=== PATIENT | female | born 1985 | race Caucasian/White ===

== ENCOUNTER 2024-12-04 02:44 | Inpatient (IN) | payer OTHER, SELFPAY ==
[2024-12-04] VITALS (8 sets, daily range): BP systolic 92–137; BP diastolic 55–89; PULSE 73–122; RESP 16–92; TEMP 36.8–38.6; O2SAT 92–100; BMI 33.8
--- NOTE | 2024-12-04 03:11 | XR_ITS ---
Examination: CT abdomen and pelvis without contrast. Coronal 3-D reconstructions. Sagittal 2-D reconstructions. Date and time of exam:December 04, 2024 0520 hours INDICATIONS: Severe abdominal pain beginning 2 days ago CTDI: vol (mGy): 11.1 DLP: (mGycm): 660 Technique: Axial images of the abdomen have been obtained, 3 mm slice thickness Intravenous contrast material has not been administered. Low dose protocols were performed. One or more of the following dose reduction techniques were used; automated exposure control, adjustment of the mA and/or KV according to patient size, use of iterative reconstruction technique. Findings: No focal liver or splenic lesion Absent gallbladder No pancreatic mass Mild right hydronephrosis without definite ureteral calculi No bowel obstruction Normal appendix No pelvic mass No bladder mass IMPRESSION: Mild right hydronephrosis without definite ureteral calculi, consider urinary tract infection, recent passage of a ureteral calculus
--- NOTE | 2024-12-04 03:11 | PD.EDRME ---
Rapid Medical Screening Exam RME Arrival date/time: 12/04/24 02:44 This is a case of 39-year-old female with history of multidrug resistance recurrent urinary tract infection and kidney stone came in with bilateral flank pain radiating to suprapubic area for 2 days associated with nausea vomiting and blood in the urine worsening symptoms this patient decided to sought consult here in the emergency room Chief Complaint: Urogenital-Female Time Seen by Provider: 12/04/24 02:53 Vital signs: Vital Signs Temperature 100.4 F 12/04/24 03:00 Pulse Rate 122 H 12/04/24 03:00 Respiratory Rate 18 12/04/24 03:00 Blood Pressure 133/87 H 12/04/24 03:00 Pulse Oximetry (%) 100 12/04/24 03:00 Oxygen Delivery Method Room Air 12/04/24 03:00
[2024-12-04 03:28] LABS: Collection Type, Urine Clean Catch
[2024-12-04 03:30] LABS: Basophils # (Auto) 0.0 Thou/mm3 (0.0-0.2); Basophils % (Auto) 0 % (0-2.5); Eosinophils # (Auto) 0.1 Thou/mm3 (0.0-0.5); Eosinophils % (Auto) 1 % (0-10); Hematocrit 37.3 % (36.0-46.0); Hemoglobin 11.8 g/dL (12.0-16.0); Immature Granulocytes Auto 0.03 Thou/mm3 (0.00-0.00); Lymphocytes # (Auto) 1.2 Thou/mm3 (1.0-4.8); Lymphocytes % (Auto) 10 % (10-50); Mean Corpuscular HGB Conc 31.6 g/dl (31.0-37.0); Mean Corpuscular Hemoglobin 25.8 pg (25.0-35.0); Mean Corpuscular Volume 81 fL (80-100); Monocytes # (Auto) 1.0 Thou/mm3 (0.0-0.8); Monocytes % (Auto) 8 % (0-12); Neutrophils # (Auto) 9.7 Thou/mm3 (1.8-7.7); Neutrophils % (Auto) 81 % (37-80); Nucleated Red Blood Cell # 0.00 Thou/mm3 (0.00-0.00); Nucleated Red Blood Cell % 0 /100 WBC (0); Platelet Count 273 Thou/mm3 (140-440); RDW Standard Deviation 57.7 fL (36.4-46.3); Red Blood Count 4.58 Miln/mm3 (4.00-5.20); White Blood Count 12.0 Thou/mm3 (3.6-11.0)
[2024-12-04 03:32] LABS: HCG Qualitative,Urine Negative
[2024-12-04 03:33] LABS: Bacteria,Urine 1+; Bilirubin,Urine Negative (Negative); Blood,Urine 3+ (Negative); Budding Yeast,Urine Present; Clarity,Urine Turbid (Clear/Hazy); Color,Urine Lt-Yellow (Lt Yel-Yel); Glucose, Urine Negative (Negative); Ketones,Urine Negative (Negative); Leukocyte Esterase,Urine Positive (Negative); Nitrite,Urine Negative (Negative); PH,Urine 7.5 (5.0-7.0); Protein,Urine Negative (Neg - Trace); RBC,Urine 10 /hpf (0-3); Specific Gravity,Urine 1.012 (1.001-1.035); Squamous Epithelial Cell,Urine 4 /hpf (0-5); Urobilinogen,Urine Negative mg/dL (0.0-1.0); WBC,Urine 66 /hpf (0-5)
[2024-12-04 03:52] LABS: Alanine Aminotransferase 18 U/L (10-49); Albumin, Serum 4.5 gm/dL (3.5-5.0); Albumin/Globulin Ratio 1.7 (1.2-2.2); Alkaline Phosphatase 65 U/L (46-116); Anion Gap 11 (7-16); Aspartate Amino Transferase 20 U/L (0-34); BUN/Creatinine Ratio 10 Ratio (12-20); Bilirubin,Total 0.4 mg/dL (0.3-1.2); Blood Urea Nitrogen 8 mg/dL (9-23); Calcium 9.9 mg/dL (8.3-10.6); Calcium (Corrected) 9.9 mg/dL (8.5-10.1); Carbon Dioxide 24.7 mMol/L (20.0-31.0); Chloride 102 mMol/L (98-107); Creatinine (Component) 0.8 mg/dL (0.6-1.3); Estimated Creatinine Clearance 95.8 mL/min (>60); Globulin 2.7 gm/dL (2.3-3.5); Glucose 115 mg/dL (74-106); Lipase 36 U/L (12-53); Osmolality,Calculated 274 (275-295); Potassium 3.8 mMol/L (3.4-5.1); Sodium 138 mMol/L (136-145); Total Protein 7.2 gm/dL (5.7-8.2); eGFR > 60 See Note
[2024-12-04] MEDS: ONDANSETRON ODT 4 MG TABRAP PO (05:08)
[2024-12-04] MEDS: MORPHINE SULF INJ 10 MG/ML VIAL 4 MG IM (05:08)
--- NOTE | 2024-12-04 06:23 | PRELIM_ITS ---
CT scan of the abdomen and pelvis without intravenous contrast (axial sections with sagittal and coronal reformats) December 04, 2024 0520 hours Clinical History: kidney stone Comparison: No prior study is available for comparison. Findings: The lung bases are clear. The gallbladder is surgically absent. There is moderate right hydroureteronephrosis without ureteric or renal calculus. The possibilities include a recently passed calculus versus urinary tract infection. The liver, pancreas, spleen and adrenals are unremarkable on this noncontrast study. A moderate amount of fecal material is present in the colon. No evidence of bowel obstruction. There are appendicoliths in the proximal appendix. The appendix is otherwise within normal limits. There is no mesenteric or retroperitoneal adenopathy. The urinary bladder is incompletely distended at the time of the examination. The uterus is unremarkable. There is no free fluid or free air. The osseous structures are unremarkable. Impression: Moderate right hydroureteronephrosis without ureteric or renal calculus. The possibilities include a recently passed calculus versus urinary tract infection. Other findings as described above. Report Electronically Signed By: Sandoval Bowers 12/04/2024 6:23:00 AM [EST]
--- NOTE | 2024-12-04 06:35 | PD.EDFMALE ---
ED Female Urogenital RME/HPI General Chief complaint: Urogenital-Female Stated complaint: poss uti Time Seen by Provider: 12/04/24 02:53 Arrival date/time: 12/04/24 02:44 RME / HPI RME / HPI Narrative: 12/04/24 02:44 This is a case of 39-year-old female with history of multidrug resistance recurrent urinary tract infection and kidney stone came in with bilateral flank pain radiating to suprapubic area for 2 days associated with nausea vomiting and blood in the urine worsening symptoms this patient decided to sought consult here in the emergency room DR. LUBNA ROA ED EVALUATION 39 year old female with history of fibromyalgia, recurrent bladder infections and UTIs that are multidrug resistant (usually treated with Meropenem or Amikacin per pt) presents to the ED for evaluation of suprapubic abdominal and bilateral flank pain beginning 2 days ago. Described as aching in sensation and similar to previous bladder infections, rating as severe. Accompanied by subjective fevers, chills, nausea, vomiting, hematuria. Additionally complaints of constipation and my intestines feel swollen . Reportedly at baseline has constipation and takes stool softeners daily. Patient reports she was treated for bladder infection at [facility] in [place] on 10/22/2024 and was due to follow up with urologist for cystoscopy. However, due to insurance she was unable to and is pending a new referral. Related Data Allergies Allergy/AdvReac Type Severity Reaction Status Date / Time cephalexin (From Keflex) Allergy Verified 12/04/24 02:55 sulfamethoxazole (From Allergy Verified 12/04/24 02:59 Septra) trimethoprim (From Septra) Allergy Verified 12/04/24 02:59 Review of Systems Review of Systems Systems Reviewed: All systems reviewed, normal except as documented Past Medical History Past Medical History CARDIAC: Positive Hypercholesterolemia; Negative Congestive Heart Failure RESPIRATORY: Negative Chronic Obstructive Pulmonary Disease (COPD) GENITOURINARY: Negative Renal Disease ENDOCRINE: Negative Diabetes Mellitus Type 1 or Diabetes Mellitus Type 2 Social History SMOKING STATUS: Never smoker ED Exam Narrative Physical exam: GENERAL APPEARANCE: alert and oriented x 4, well-developed, well-nourished, no acute distress HEENT: Normocephalic, atraumatic; pupils equal, round, reactive to light; EOMI; mucous membranes pink, moist; oropharynx clear NECK: Supple LUNGS: CTABL; no wheezes, no rales, no rhonchi HEART: Sinus tachycardia; normal S1, S2; no murmurs ABDOMEN: non distended; normal BS; soft, no tenderness, no guarding, no rebound; no masses, no organomegaly, no hernia BACK: no CVA tenderness EXTREMITIES: atraumatic; no edema NEUROLOGIC: awake; alert and oriented x4; cranial nerves II-XII grossly intact; no focal sensory or motor deficits PSYCHIATRIC: appropriate mood and affect SKIN: warm, dry, normal color; no rashes Course Course Course Narrative: 0738: I spoke with resident Dr. Pacheco working with hospitalist Dr. Pacheco. Discussed patients PMHx, HPI, ED course, exam findings, labs, and radiology results. The hospitalist agree to accept the patient for admission. Quality Measures Current suspected stage: sepsis Possible source: genitourinary Blood cultures ordered: completed in ED Antibiotic ordered: Yes Pertinent labs: 12/04/24 06:45 Lactic Acid 1.5 mMol/L (0.4-2.0) Procalcitonin Pending sepsis Orders Category Date Time Status Insert IV NOW Care 12/04/24 06:[address] abdomen pelvis wo con Stat Exams 12/04/24 03:11 Completed Blood Culture (Lab) Stat Lab 12/04/24 06:45 Ordered CBC Stat Lab 12/04/24 03:23 Completed Comprehensive Metabolic Panel Stat Lab 12/04/24 03:23 Completed HCG Qualitative,Urine Stat Lab 12/04/24 03:21 Completed Lactate (Lactic Acid) Stat Lab 12/04/24 06:45 Completed Lipase Stat Lab 12/04/24 03:23 Completed Procalcitonin Stat Lab 12/04/24 06:45 Received Urinalysis Stat Lab 12/04/24 03:21 Completed Urine Culture Stat Lab 12/04/24 03:21 Received Meropenem Inj [Merrem Inj] 1,000 mg Med 12/04/24 06:36 Discontinued SODIUM CHLORIDE 0.9% (Popper) [Ns 0.9% (P)] 50 ml IV X1 Morphine Inj Med 12/04/24 05:01 Discontinued 4 mg IM X1 ONE Morphine Inj Med 12/04/24 06:36 Discontinued 5 mg IVP X1 ONE Ondansetron Inj [Zofran Inj] Med 12/04/24 06:36 Discontinued 4 mg IVP X1 ONE Ondansetron Odt [Zofran Odt] Med 12/04/24 05:01 Discontinued 4 mg PO X1 ONE Sodium Chloride 0.9% 1000 ml [Ns] 1,000 ml Med 12/04/24 06:36 Discontinued IV 999 mls/hr Vital Signs Vital signs: Vital Signs Temperature 100.4 F 12/04/24 03:00 Pulse Rate 122 H 12/04/24 03:00 Respiratory Rate 18 12/04/24 03:00 Blood Pressure 133/87 H 12/04/24 03:00 Pulse Oximetry (%) 100 12/04/24 03:00 Oxygen Delivery Method Room Air 12/04/24 03:00 Pulse ox is 100% on room air which is adequate. Urogenital - Female MDM Narrative MDM Narrative:: Cortney Echevarria am scribing for and in the presence of Dr. Brooks. Patient data External records reviewed:: None (No previous records for review ) Clinical information provided by:: patient Social determinants that could affect healthcare access:: none Patient has the following chronic illnesses:: fibromyalgia, recurrent bladder infections and UTIs that are multidrug resistant How is presenting disease/condition affected by chronic disease/condition?: exacerbated by Evaluation data The following diagnostics were reviewed and interpreted by me:: lab results and radiology exam(s) Lab and/or radiology exams considered but not ordered:: None Interpretation Summary: Ordering Physician: Date of Service: Procedure(s): Accession Number(s): cc: ~ CT scan of the abdomen and pelvis without intravenous contrast (axial sections with sagittal and coronal reformats) December 04, 2024 0520 hours Clinical History: kidney stone Comparison: No prior study is available for comparison. Findings: The lung bases are clear. The gallbladder is surgically absent. There is moderate right hydroureteronephrosis without ureteric or renal calculus. The possibilities include a recently passed calculus versus urinary tract infection. The liver, pancreas, spleen and adrenals are unremarkable on this noncontrast study. A moderate amount of fecal material is present in the colon. No evidence of bowel obstruction. There are appendicoliths in the proximal appendix. The appendix is otherwise within normal limits. There is no mesenteric or retroperitoneal adenopathy. The urinary bladder is incompletely distended at the time of the examination. The uterus is unremarkable. There is no free fluid or free air. The osseous structures are unremarkable. Impression: Moderate right hydroureteronephrosis without ureteric or renal calculus. The possibilities include a recently passed calculus versus urinary tract infection. Other findings as described above. Report Electronically Signed By: Sandoval Bowers 12/04/2024 6:23:00 AM [EST] Medications / Prescriptions Medications or Prescriptions considered but not ordered:: None Medication administrations:: Medication Administration History Discontinued Medications Meropenem 1,000 mg/ Sodium (Chloride) 50 mls @ 100 mls/hr IV X1 ONE Stop: 12/04/24 06:37 Sodium Chloride (Ns) 1,000 mls @ 999 mls/hr IV .Q1H1M ONE Stop: 12/04/24 07:36 Morphine Sulfate (Morphine Sulf Inj 10 Mg/Ml Vial) 4 mg IM X1 ONE Stop: 12/04/24 05:02 Last Admin: 12/04/24 05:08 Dose: 4 mg Documented By: QUINTON Morphine Sulfate (Morphine Sulf Inj 10 Mg/Ml Vial) 5 mg IVP X1 ONE Stop: 12/04/24 06:37 Ondansetron HCl (Ondansetron Odt 4 Mg Tabrap) 4 mg PO X1 ONE; Protocol Stop: 12/04/24 05:02 Last Admin: 12/04/24 05:08 Dose: 4 mg Documented By: QUINTON Ondansetron HCl (Ondansetron Inj 2 Mg/Ml Inj 2 Ml) 4 mg IVP X1 ONE Stop: 12/04/24 06:37 See above Consultations Consultation(s) initiated? (list below): No Diagnosis Urogenital Female Differential Diagnosis: urinary tract infection, cystitis and other (pyelonephritis ) Most likely diagnosis given after review of the tests above:: UTI Sepsis Admission Indicated Admission indicated?: indicated Admission Request Was there a request for admission?: Yes Admission Attestation Admission request attestation: Discussed case with [] from Hospitalist service regarding admission. Discussed patients ED course, exam findings, labs, and radiology results. The Hospitalist [agrees,declines] to accept the patient for admission. Disposition Plan Disposition Plan: Admit Discharge Plan Plan Patient Disposition: Admit Acute Care w/in Hospital Prescriptions/Referrals Referrals: No Primary/Family,Physician [Primary Care Provider] - In 1 week Problem List Clinical Impression: Urinary tract infection, Sepsis Patient/Caregiver Discharge Instructions Print Language: [place] Citizen Stand Alone Forms: Kayla Bedoya Info., Patient Portal Info Letter
[2024-12-04 07:20] LABS: Lactate (Lactic Acid) 1.5 mMol/L (0.4-2.0)
--- NOTE | 2024-12-04 07:45 | PC.NURSE ---
In to assess pt. Pt with c/o pain to the lower abd rad to the back. Pt without further complaints at this time. Orders received and initiated. Call light placed within reach. Plan of care ongoing.
[2024-12-04] MEDS: ONDANSETRON INJ 2 MG/ML INJ 2 ML 4 MG IVP ×2 (07:54→11:18)
[2024-12-04] MEDS: SODIUM CHLORIDE 0.9% 1000 ML 1,000 ML 999 ML IV (07:54)
[2024-12-04] MEDS: MORPHINE SULF INJ 10 MG/ML VIAL 5 MG IVP (07:56)
[2024-12-04] MEDS: MEROPENEM INJ 1,000 MG in SODIUM CHLORIDE 0.9% (Popper) 50 ML 100 MG IV (07:57)
[2024-12-04 08:07] LABS: Procalcitonin 0.06 ng/ml (0.0-0.49)
[2024-12-04] MEDS: HYDROmorphone INJ 2 MG/ML VIAL 0.5 MG IVP ×2 (11:20→18:10)
[2024-12-04] MEDS: RINGERS LACTATED 1000 ML 1,000 ML 125 ML IV ×2 (11:22→21:12)
[2024-12-04] MEDS: HEPARIN SOD INJ 5000 UNIT/ML VIAL SC ×2 (11:23→20:41)
[2024-12-04 12:44] LABS: HIV (1&2) Antibody Rapid Non-Reactive
--- NOTE | 2024-12-04 13:41 | PC.NURSE ---
Received patient from ER. Patient ambulated to bathroom and voided. Urine received for [facility] lab, bladder scan obtained. 0ml noted from bladder scan.
[2024-12-04] MEDS: PIPER/TAZO 3.375 GM PREMIX 3.375 GM/50 ML BAG IV ×2 (14:04→21:10)
--- NOTE | 2024-12-04 14:17 | ESHP_ITS ---
<Statement entered by Nicole Pacheco MD - 12/04/24 20:31> Ms. Solis is a 39-year-old female past medical history significant for gastroparesis, depression, anxiety, insomnia and recurrent UTI. IV antibiotics with Zosyn will continue. Pending blood and urine cultures for further speciation. Due to significant amount of flank pain caused by small right ureteral stone will continue tamsulosin and monitor for passing of the stone and for pain control will add ketorolac, Dilaudid for breakthrough. Will avoid morphine as it has caused patient's significant amount of nausea vomiting. Will continue home Reglan due to patient's history of gastroparesis and for nausea vomiting avoid Zofran and will give Compazine. Patient was seen and examined by me personally. I have directly supervised and reviewed documentation by the team resident and agree with its findings. ------- Dr. Pacheco, PGY-2 Documentation for date of: 12/04/24 HPI History of Present Illness History of present illness: Ms. Solis is a 39-year-old female past medical history significant for gastroparesis, depression, anxiety, insomnia and recurrent UTI presented to the ED complaining of bilateral flank pain. Patient states that she was initially diagnosed with complicated UTI in June and was treated with IV antibiotics however blood cultures grew multidrug-resistant bacteria only sensitive to meropenem. Patient states that she has had recurrent issue of complicated UTIs that she was told at [facility] and was treated multiple times. She patient was scheduled to get a cystoscopy done on November 17 however was not able to get insurance approval. Patient is currently visiting from [place] and all of her doctor visits have been in [place] including urology. Patient states she also has history of gastroparesis and takes Reglan daily. Patient endorses to significant amount of flank pain which radiates to the side of her abdomen bilaterally however it is worse on the right side. Patient denies any burning, pain, urgency or blood in the urine. Majority of her symptoms are days when she has lower abdominal pain at the area of the bladder. Patient states her pain is so severe at times that she is often nauseous. ED course In the ED initial blood pressure is 133/87, pulse 122, temperature 100.4, WBC 12.0 Urinalysis positive for leukocyte esterase, urine blood 3+, urine RBC 10, urine WBC 66, urine bacteria 1+ CT abdomen/pelvis showed mild right hydronephrosis, per reviewing imaging there is a small calculi although CT official read does not mention PMH: PSH: x2, cholescystectomy SH: denies tobacco, alcohol and illicit drugs, Pt states she takes edible marijuana occationally Allergies: cephalix, TMP-SMX Home Meds: Med rec pending (Pt states she takes Wellbutrin, hydroxyzine, Ambien, Reglan) Review of Systems Review of Systems Systems Reviewed: All systems reviewed, normal except as documented Exam Vital Signs Temp Pulse Resp BP Pulse Ox O2 Del Method 99.5 F 98 16 109/81 97 Room Air 12/04/24 13:40 12/04/24 13:40 12/04/24 13:40 12/04/24 13:40 12/04/24 13:40 12/04/24 13:40 Narrative Exam GENERAL: A&Ox3, obese well groomed female, Awake, in mild acute distress due to pain NEURO: no focal neurological deficits noted HEENT: Atraumatic, Normocephalic. mucous membranes moist. Eyes open, symmetrical, & clear HEART: Normal Heart Sounds LUNGS: Clear to auscultation with no wheezing or crackles. ABDOMEN: Right abdominal tenderness , soft, non-distended, bowel sounds heard SKIN: No Rash or ecchymoses, piercing on face near eyes bilaterally EXTREMITIES: No edema, tenderness, able to move all 4 extremities, pedal pulses palpated Results: Labs 12/04/24 03:23 12/04/24 03:23 Labs: Short CBC 12/04/24 Range/Units 03:23 WBC 12.0 H (3.6-11.0) Thou/mm3 Hgb 11.8 L (12.0-16.0) g/dL Hct 37.3 (36.0-46.0) % Plt Count 273 (140-440) Thou/mm3 BMP 12/04/24 03:23 Sodium 138 Potassium 3.8 Chloride 102 Carbon Dioxide 24.7 BUN 8 L Creatinine 0.8 Glucose 115 H Calcium 9.9 Liver Function 12/04/24 Range/Units 03:23 Total Bilirubin 0.4 (0.3-1.2) mg/dL AST 20 (0-34) U/L ALT 18 (10-49) U/L Alkaline Phosphatase 65 (46-116) U/L Albumin 4.5 (3.5-5.0) gm/dL Urine 12/04/24 Range/Units 03:21 Urine Color Lt-Yellow (Lt Yel-Yel) Urine Clarity Turbid A (Clear/Hazy) Urine pH 7.5 H (5.0-7.0) Ur Specific [place] 1.012 (1.001-1.035) Urine Protein Negative (Neg - Trace) Urine Glucose (UA) Negative (Negative) Quality Measures Quality Measures sepsis Current suspected stage: sepsis Possible source: genitourinary Blood cultures ordered: completed in ED Antibiotic ordered: Yes Medications Home Medications and Allergies Home Medications ?Medication ?Instructions ?Recorded ?Confirmed ?Type bupropion HCl 75 mg tablet 150 mg PO DAILY 12/04/24 History celecoxib 200 mg capsule (Celebrex) 200 mg PO QDAY 12/04/24 History clonazepam 0.5 mg tablet 0.5 mg PO BID PRN anxiety 12/04/24 History docusate sodium 100 mg capsule 100 mg PO BID 12/04/24 12/04/24 History (Colace) hydroxyzine HCl 50 mg tablet 50 mg PO HS 12/04/2411/18 History metoclopramide HCl 10 mg tablet 10 mg PO Q6H 12/04/24 12/04/24 History (Reglan) omeprazole 40 mg capsule,delayed 40 mg PO QDAY 5 12/04/24 History release zolpidem 10 mg tablet 10 mg PO HS 12/04/24 5 History Allergies Allergy/AdvReac Type Severity Reaction Status Date / Time cephalexin (From Keflex) Allergy Verified 12/04/24 02:55 sulfamethoxazole (From Allergy Verified 12/04/24 02:59 Septra) trimethoprim (From Septra) Allergy Verified 12/04/24 02:59 Visit Medications Acetaminophen (Acetaminophen 325 Mg Tablet) 650 mg PO Q6H PRN PRN Reason: Fever >101.5 and/or pain Stop: 01/03/25 09:36 Heparin Sodium (Porcine) (Heparin Sod Inj 5000 Unit/Ml Vial) 5,000 unit SC Q12HR [facility] Stop: 12/18/24 09:44 Last Admin: 12/04/24 11:23 Dose: 5,000 unit Hydromorphone HCl (Hydromorphone Inj 2 Mg/Ml Vial) 0.5 mg IVP Q6H [facility] Stop: 12/09/24 10:29 Last Admin: 12/04/24 11:20 Dose: 0.5 mg Lactated Ringer's (Lactated Ringers) 1,000 mls @ 125 mls/hr IV .Q8H [facility] Stop: 01/03/25 09:44 Last Admin: 12/04/24 11:22 Dose: 125 mls/hr Piperacillin/Tazobactam/Dextrose (Zosyn) 3.375 gm in 50 mls @ 12.5 mls/hr IV Q8HR [facility] Stop: 12/11/24 21:59 Piperacillin/Tazobactam/Dextrose (Zosyn) 3.375 gm in 50 mls @ 100 mls/hr IV X1 ONE Stop: 12/04/24 14:29 Last Admin: 12/04/24 14:04 Dose: 100 mls/hr Ondansetron HCl (Ondansetron Inj 2 Mg/Ml Inj 2 Ml) 4 mg IVP Q6H PRN; Protocol PRN Reason: NAUSEA OR VOMITING Stop: 01/03/25 09:36 Last Admin: 12/04/24 11:18 Dose: 4 mg Tamsulosin HCl (Tamsulosin Hcl 0.4 Mg Capsule) 0.8 mg PO QDAY [facility] Stop: 01/03/25 10:29 Last Admin: 12/04/24 11:29 Dose: Not Given Discontinued Medications Acetaminophen (Acetaminophen Ronda 325 Mg/10 Ml Udc) 650 mg PO X1 ONE Stop: 12/04/24 11:34 Last Admin: 12/04/24 12:53 Dose: Not Given Meropenem 1,000 mg/ Sodium (Chloride) 50 mls @ 100 mls/hr IV X1 ONE Stop: 12/04/24 06:37 Last Infusion: 12/04/24 09:04 Dose: Infused Sodium Chloride (Ns) 1,000 mls @ 999 mls/hr IV .Q1H1M ONE Stop: 12/04/24 07:36 Last Infusion: 12/04/24 08:49 Dose: Infused Morphine Sulfate (Morphine Sulf Inj 10 Mg/Ml Vial) 4 mg IM X1 ONE Stop: 12/04/24 05:02 Last Admin: 12/04/24 05:08 Dose: 4 mg Morphine Sulfate (Morphine Sulf Inj 10 Mg/Ml Vial) 5 mg IVP X1 ONE Stop: 12/04/24 06:37 Last Admin: 12/04/24 07:56 Dose: 5 mg Ondansetron HCl (Ondansetron Odt 4 Mg Tabrap) 4 mg PO X1 ONE; Protocol Stop: 12/04/24 05:02 Last Admin: 12/04/24 05:08 Dose: 4 mg Ondansetron HCl (Ondansetron Inj 2 Mg/Ml Inj 2 Ml) 4 mg IVP X1 ONE Stop: 12/04/24 06:37 Last Admin: 12/04/24 07:54 Dose: 4 mg Tamsulosin HCl (Tamsulosin Hcl 0.4 Mg Capsule) 0.4 mg PO QDAY [facility] Stop: 01/03/25 09:49 Last Admin: 12/04/24 11:34 Dose: Not Given Assessment & Plan Plan Ms. Solis is a 39-year-old female past medical history significant for gastroparesis, depression, anxiety, insomnia and recurrent UTI presented to the ED complaining of bilateral flank pain. Pt is admitted to the hospital for IV antibiotics. #Acute pyelonephritis #Recurrent UTIs #Right hydronephrosis, mild 2/2 #Right ureteral calculi, small - Patient has significant bilateral flank pain worse on the right imaging shows small calculi which is nonobstructing however there is evidence of mild right hydronephrosis. -Patient has history of recurrent UTIs for several months for which patient has repeatedly gotten IV antibiotics at [facility]. On admission patient had tachycardia, fever of 100.4 and WBC count 12 point. Urinalysis positive for leukocyte esterase, urine blood 3+, urine RBC 10, urine WBC 66, urine bacteria 1+ Plan: -Pain control pain scale includes ketorolac, Dilaudid and Tylenol -Pending STI, HIV (negative), hepatitis panel -Maintenance IV fluids ordered -Tamsulosin 0.8 mL mg daily -Urine and blood cultures pending -In the ED patient was given meropenem 1000 mg x 1 on 12/04/2024 -Started patient on Zosyn 3.375 g every 8 hours 12/04- #Gastroparesis - Resumed home Reglan #Depression #Anxiety #Insomnia - Resumed home Wellbutrin and Ambien, will hold hydroxyzine as patient is currently on multiple drugs for pain management Health Maintenance Disposition: Medsurg for IV antibiotics DVT Prophylaxis: Heparin 5000 units SC Q12 hrs GI Prophylaxis: Pantoprozol-40 IVP Qday Diet: regular diet Lines: Peripheral lines Code status: Full Patient plan of care was discussed with the senior resident [...]? and attending physician [...]? Bello Torres, PGY1 Attending Provider Attestation/Addendum I Anish Pacheco MD reviewed the note and agree with the resident's assessment & plan with modifications/additions/exceptions as below. I have personally reviewed labs, imaging, home meds/prior records, examined the patient, formulated and discussed management plan with the IM team. 39-year-old female with recent history of nephrolithiasis and urinary tract infection was being evaluated by urologist with cystoscopy being scheduled however was postponed due to insurance issues. Patient presented to ED overnight with significant nausea, vomiting, right flank and right-sided abdominal pain for the past few days. She is noted to have tachycardia, low- grade fever and mildly elevated leukocyte. CT abdomen/pelvis did reveal right ureteral stone along with mild hydronephrosis and concern for infection. Patient likely has UTI with ureteric colic. Continue IV fluid resuscitation, will change antibiotic to Zosyn, started on tamsulosin obtain urine drug screen and STD panel. Pain control with Toradol, lidocaine patch and Dilaudid as needed. Will consult urology for further evaluation and management.
[2024-12-04] MEDS: PROCHLORPERAZINE INJ 5 MG/ML VIAL 2 ML 10 MG IM (15:12)
[2024-12-04 15:31] LABS: HCG Qualitative,Urine Negative
--- NOTE | 2024-12-04 16:24 | PC.SS ---
Wendy Solis is a 39-year-old female admitted to Med Surg for UTI. SS conducted bedside contact with the patient to complete initial assessment and to discuss discharge planning. Role and reason explained. Patient confirmed demographic information. Patient identifies lifepartner Mari Gutierrez [phone] as her surrogate decision maker. Pt states she is able to complete all ADL?s independently. No need for any source of DME. Pts PCP is Dr. Crain at [facility] in [place]. Discharge options discussed and the pt wishes to return home.? Family will provide transportation upon DC. No further intervention required at this time, social science research assistant would be available to address any further concerns. DC Plan: Home Contact: JOSE ANTONIO< Mari Address: Confirmed on face sheet PCP: Paras
[2024-12-04] MEDS: METOCLOPRAMIDE 5 MG TABLET 10 MG PO (16:41)
[2024-12-04] MEDS: ACETAMINOPHEN IVPB 1,000 MG/100 ML VIAL 250 MG IV (16:41)
[2024-12-04] MEDS: TAMSULOSIN HCL 0.4 MG CAPSULE 0.8 MG PO (20:41)
[2024-12-04 21:24] LABS: Hepatitis A Antibody IgM Non Reactive (Non React); Hepatitis B Core Antibody IgM Non Reactive (Non React); Hepatitis B Surface Antigen Non Reactive (Non React); Hepatitis C Antibody Non Reactive (Non React)
[2024-12-04] MEDS: ZOLPIDEM 5 MG TABLET 10 MG PO (21:37)
[2024-12-04] MEDS: PROCHLORPERAZINE INJ 5 MG/ML VIAL 2 ML 10 MG IVP (21:37)
--- NOTE | 2024-12-04 21:55 | PC.NURSE ---
attempted to insert an additional peripheral IV to pt, was not successful x2. pt began to get anxious and did not want to attempt any longer. pt had abx ordered that is not compatible with LR. notified Dr Palacio if we can switch fluids to NS, he agreed, new order for NS received and IV abx given.
[2024-12-04] MEDS: SODIUM CHLORIDE 0.9% 1000 ML 1,000 ML 125 ML IV (22:01)
[2024-12-04] MEDS: ACETAMINOPHEN 325 MG TABLET 650 MG PO (23:20)
--- NOTE | 2024-12-04 23:24 | PC.NURSE ---
pt had temp of 101.4 orally. gave PRN tylenol and notified Dr Jimenes. will continue to monitor pts temp.
[2024-12-05] VITALS (10 sets, daily range): BP systolic 94–130; BP diastolic 54–85; PULSE 87–104; RESP 16–108; TEMP 36.3–38.2; O2SAT 92–98
[2024-12-05] MEDS: METOCLOPRAMIDE 5 MG TABLET 10 MG PO ×5 (00:12→23:46)
[2024-12-05] MEDS: HYDROmorphone INJ 2 MG/ML VIAL 0.5 MG IVP ×4 (00:12→19:12)
--- NOTE | 2024-12-05 00:25 | PC.NURSE ---
notified Dr Jimenes of reassessment of pts temp is now 100.7 F. no new orders received.
[2024-12-05] MEDS: PIPER/TAZO 3.375 GM PREMIX 3.375 GM/50 ML BAG IV ×3 (05:06→21:01)
--- NOTE | 2024-12-05 05:19 | EKG_ITS ---
[facility] Test Date: 2024-12-05 Pat Name: JOHANN MASON 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
[2024-12-05] MEDS: SODIUM CHLORIDE 0.9% 1000 ML 1,000 ML 125 ML IV (06:04)
[2024-12-05 06:25] LABS: Basophils # (Auto) 0.0 Thou/mm3 (0.0-0.2); Basophils % (Auto) 0 % (0-2.5); Eosinophils # (Auto) 0.0 Thou/mm3 (0.0-0.5); Eosinophils % (Auto) 0 % (0-10); Hematocrit 33.9 % (36.0-46.0); Hemoglobin 10.6 g/dL (12.0-16.0); Immature Granulocytes Auto 0.05 Thou/mm3 (0.00-0.00); Lymphocytes # (Auto) 1.7 Thou/mm3 (1.0-4.8); Lymphocytes % (Auto) 14 % (10-50); Mean Corpuscular HGB Conc 31.3 g/dl (31.0-37.0); Mean Corpuscular Hemoglobin 26.1 pg (25.0-35.0); Mean Corpuscular Volume 84 fL (80-100); Monocytes # (Auto) 1.4 Thou/mm3 (0.0-0.8); Monocytes % (Auto) 11 % (0-12); Neutrophils # (Auto) 9.5 Thou/mm3 (1.8-7.7); Neutrophils % (Auto) 75 % (37-80); Nucleated Red Blood Cell # 0.00 Thou/mm3 (0.00-0.00); Nucleated Red Blood Cell % 0 /100 WBC (0); Platelet Count 236 Thou/mm3 (140-440); RDW Standard Deviation 59.4 fL (36.4-46.3); Red Blood Count 4.06 Miln/mm3 (4.00-5.20); White Blood Count 12.7 Thou/mm3 (3.6-11.0)
[2024-12-05] MEDS: PROCHLORPERAZINE INJ 5 MG/ML VIAL 2 ML 10 MG IVP ×3 (06:33→19:45)
[2024-12-05 07:11] LABS: Alanine Aminotransferase 25 U/L (10-49); Albumin, Serum 3.9 gm/dL (3.5-5.0); Albumin/Globulin Ratio 1.7 (1.2-2.2); Alkaline Phosphatase 57 U/L (46-116); Anion Gap 8 (7-16); Aspartate Amino Transferase 23 U/L (0-34); BUN/Creatinine Ratio 10 Ratio (12-20); Bilirubin,Total 0.6 mg/dL (0.3-1.2); Blood Urea Nitrogen 6 mg/dL (9-23); Calcium 9.0 mg/dL (8.3-10.6); Calcium (Corrected) 9.1 mg/dL (8.5-10.1); Carbon Dioxide 23.9 mMol/L (20.0-31.0); Chloride 105 mMol/L (98-107); Creatinine (Component) 0.6 mg/dL (0.6-1.3); Estimated Creatinine Clearance 127.7 mL/min (>60); Globulin 2.3 gm/dL (2.3-3.5); Glucose 109 mg/dL (74-106); Magnesium 2.0 mg/dL (1.6-2.6); Osmolality,Calculated 272 (275-295); Potassium 3.4 mMol/L (3.4-5.1); Sodium 137 mMol/L (136-145); Thyroid Stimulating Hormone 0.41 uIU/mL (0.55-4.78); Total Protein 6.2 gm/dL (5.7-8.2); eGFR > 60 See Note
[2024-12-05 07:19] LABS: Chlamydia trachomatis PCR Negative (Not Detect); Neisseria Gonorrhoeae DNA PCR Negative (Not Detect); Trichomonas Negative (Negative)
[2024-12-05] MEDS: TAMSULOSIN HCL 0.4 MG CAPSULE 0.8 MG PO (08:27)
[2024-12-05] MEDS: HEPARIN SOD INJ 5000 UNIT/ML VIAL SC ×2 (08:28→21:04)
[2024-12-05 08:35] LABS: Syphilis Nonreactive (Nonreactive)
--- NOTE | 2024-12-05 09:01 | ESPR_ITS ---
<Statement entered by Patricia Gao MD - 12/06/24 09:45> Patient was seen and examined at bedside. I agree on the assessment and plan on this note as documented by resident Skylar Swenson DO PGY1. 39-year-old female with past medical history as below admitted for acute pyelonephritis, nephrolithiasis currently requiring IV pain medication for pain management, will continue with IV antibiotics, pending urine culture, patient scheduled with urology outpatient however unable to follow due to insurance issues. Urology currently unavailable at facility, will continue IV antibiotics and pain management will discharge with urology follow-up, pending urine cultures. Case discussed with attending Dr. Junior Gao MD PGY-2 Documentation for date of: 12/05/24 Subjective Subjective Interval history: Overnight patient spiked a fever Tmax 101.4 ?F, Tylenol given at 2300 with subsequent decrease in fevers. Remained afebrile since 1 AM. Patient endorses she is still having lower abdominal pain anteriorly radiating to bilateral flanks, however improved since admission. Endorses mild nausea and no vomiting. Still feeling very anxious due to some of her meds not being restarted with no appetite. Has some generalized bodyaches, due to fibromyalgia. Last bowel movement yesterday, hard and requesting home med Colace that she takes every day. Denies current subjective fever. Continue Zosyn. Urine cultures and blood cultures pending. Maintenance fluids stopped. Restarted home medications of Celebrex 200 mg daily, clonazepam 0.5 mg twice daily as needed, and scheduled senna/docusate. White count still elevated 12.7, hemoglobin decreased from 11.8 to 10.6 today, likely dilutional. Still tachycardic heart rate ranging 80-115. TSH low 0.41, ordered T4. Follow-up urine drug screen. STI panel, hep panel and HIV negative. Exam Vital Signs Temp Pulse Resp BP Pulse Ox O2 Del Method 98.7 F 96 108 H 137/89 H 98 Room Air 12/05/24 04:00 12/05/24 06:55 12/05/24 06:55 12/04/24 23:15 12/05/24 04:00 12/05/24 04:00 Narrative Exam GENERAL: AOx3, no acute distress, obese well groomed HEENT: NC/AT, mucous membranes moist, bilateral sclera anicteric CARDIOVASCULAR: regular rate and rhythm, S1/S2 present, no murmurs appreciated PULMONARY: clear to auscultation bilaterally, no rales/rhonchi/wheezes ABDOMINAL: soft, +lower abdominal tenderness, +b/l flank tenderness, non- distended, no rebound/guarding, bowel sounds present EXTREMITIES: no peripheral edema SKIN: warm and dry, intact, no rashes NEURO: CN II-XII grossly intact, no focal deficits, alert, following commands Objective Labs 12/05/24 04:40 12/05/24 04:40 Labs: Laboratory Results - last 24 hr 12/04/24 12/04/24 12/04/24 03:23 06:45 13:40 WBC RBC Hgb Hct MCV MCH MCHC RDW Std Deviation Plt Count Neut % (Auto) Lymph % (Auto) [place] % (Auto) Eos % (Auto) Baso % (Auto) Neut # (Auto) Lymph # (Auto) [place] # (Auto) Eos # (Auto) Baso # (Auto) Immature Gran # (Auto) Absolute Nucleated RBC Immature Gran % Nucleated RBC % Sodium Potassium Chloride Carbon Dioxide Anion Gap BUN Creatinine Estim Creat Clear Calc eGFR BUN/Creatinine Ratio Glucose Calculated Osmolality Calcium Corrected Calcium Magnesium Total Bilirubin AST ALT Alkaline Phosphatase Total Protein Albumin Globulin Albumin/Globulin Ratio TSH Urine HCG, Qual Negative Syphilis Serology Chlam trachomat DNA PCR Hepatitis A IgM Ab Non Reactive Hep Bs Antigen Non Reactive Hep B Core IgM Ab Non Reactive Hepatitis C Antibody Non Reactive HIV 1&2 Antibody Rapid Non-Reactive N.gonorrhoeae DNA (PCR) Trichomonas DNA Probe 12/05/24 12/05/24 12/05/24 00:10 04:40 07:22 WBC 12.7 H RBC 4.06 Hgb 10.6 L Hct 33.9 L MCV 84 MCH 26.1 MCHC 31.3 RDW Std Deviation 59.4 H Plt Count 236 D Neut % (Auto) 75 Lymph % (Auto) 14 [place] % (Auto) 11 Eos % (Auto) 0 Baso % (Auto) 0 Neut # (Auto) 9.5 H Lymph # (Auto) 1.7 [place] # (Auto) 1.4 H Eos # (Auto) 0.0 Baso # (Auto) 0.0 Immature Gran # (Auto) 0.05 H Absolute Nucleated RBC 0.00 Immature Gran % 0 Nucleated RBC % 0 Sodium 137 Potassium 3.4 Chloride 105 Carbon Dioxide 23.9 Anion Gap 8 BUN 6 L Creatinine 0.6 Estim Creat Clear Calc 127.7 eGFR > 60 BUN/Creatinine Ratio 10 L Glucose 109 H Calculated Osmolality 272 L Calcium 9.0 Corrected Calcium 9.1 Magnesium 2.0 Total Bilirubin 0.6 AST 23 ALT 25 Alkaline Phosphatase 57 Total Protein 6.2 Albumin 3.9 D Globulin 2.3 Albumin/Globulin Ratio 1.7 TSH 0.41 L Urine HCG, Qual Syphilis Serology Nonreactive Chlam trachomat DNA PCR Negative Hepatitis A IgM Ab Hep Bs Antigen Hep B Core IgM Ab Hepatitis C Antibody HIV 1&2 Antibody Rapid N.gonorrhoeae DNA (PCR) Negative Trichomonas DNA Probe Negative Quality Measures Quality Measures sepsis Current suspected stage: ruled out Possible source: genitourinary Blood cultures ordered: completed in ED Antibiotic ordered: Yes Assessment & Plan Assessment Current Active Medications: Generic Name Dose Route Start Last Admin Trade Name Freq PRN Reason Stop Dose Admin Acetaminophen 650 mg 12/04/24 17:49 12/04/24 23:20 Acetaminophen 325 Mg Tablet PO 01/03/25 09:36 650 mg Q6H PRN Administration Fever >100.3 and/or pain Bupropion HCl 150 mg 12/05/24 09:00 12/05/24 08:27 Bupropion Hcl 75 Mg Tablet PO 01/04/25 08:59 150 mg DAILY NAGA Administration Celecoxib 200 mg 12/05/24 09:00 Celecoxib 100 Mg Capsule PO 01/04/25 08:59 QDAY NAGA Clonazepam 0.5 mg 12/05/24 09:00 Clonazepam 0.5 Mg Tablet PO 12/10/24 08:59 BID PRN anxiety Heparin Sodium (Porcine) 5,000 unit 12/04/24 09:45 12/05/24 08:28 Heparin Sod Inj 5000 Unit/Ml Vial SC 12/18/24 09:44 5,000 unit Q12HR NAGA Administration Hydromorphone HCl 0.5 mg 12/04/24 17:47 12/05/24 06:32 Hydromorphone Inj 2 Mg/Ml Vial IVP 12/09/24 14:44 0.5 mg Q6H PRN Administration BREAKTHROUGH PAIN (8-10) Piperacillin/Tazobactam/Dextrose 3.375 gm in 50 mls @ 12.5 mls/hr 12/04/24 22:00 08/18/25 05:06 Zosyn IV 12/11/24 21:59 12.5 mls/hr Q8HR NAGA Administration Sodium Chloride 1,000 mls @ 125 mls/hr 12/04/24 21:56 12/05/24 06:04 Ns IV 12/05/24 13:55 125 mls/hr .Q8H NAGA Administration Ketorolac Tromethamine 15 mg 12/04/24 17:45 Ketorolac Inj 30 Mg/Ml Vial IVP 12/09/24 17:44 Q8HR PRN pain 4-7 Metoclopramide HCl 10 mg 12/04/24 16:30 12/05/24 05:06 Metoclopramide 5 Mg Tablet PO 01/03/25 16:29 10 mg Q6HR NAGA Administration Pantoprazole Sodium 40 mg 12/04/24 14:30 12/05/24 08:26 Pantoprazole Inj 40 Mg Vial IVP 01/03/25 14:29 40 mg QDAY NAGA Administration Prochlorperazine Edisylate 10 mg 12/04/24 16:30 12/05/24 06:33 Prochlorperazine Inj 5 Mg/Ml Vial 2 Ml IVP 01/03/25 14:19 10 mg Q6H PRN Administration NAUSEA OR VOMITING Protocol Sennosides 1 tab 12/05/24 09:00 Senna/Docusate Sod 1 Tab Tablet PO 01/04/25 08:59 QDAY NAGA Protocol Tamsulosin HCl 0.8 mg 12/04/24 10:30 12/05/24 08:27 Tamsulosin Hcl 0.4 Mg Capsule PO 01/03/25 10:29 0.8 mg QDAY NAGA Administration Zolpidem Tartrate 10 mg 12/04/24 17:45 12/04/24 21:37 Zolpidem 5 Mg Tablet PO 01/03/25 17:44 10 mg HS PRN Administration INSOMNIA Plan Crystal Will is a 39F pmhx significant for gastroparesis, depression, anxiety, insomnia and recurrent UTI presented to [facility] ED on 12/04 with bilateral flank pain, admitted for acute pyelonephritis. #Acute pyelonephritis #Recurrent UTIs #Right hydronephrosis, mild 2/2 #Right ureteral calculi, small Presented with significant bilateral flank pain R>L. On admission patient had tachycardia, fever of 100.4 and WBC count 12 point 3/4 SIRS. Patient has history of recurrent UTIs for several months for which patient has repeatedly gotten IV antibiotics at [facility]. CTAP shows small calculi which is nonobstructing however there is evidence of mild right hydronephrosis. UA +LE, blood 3+, RBC 10, WBC 66, bacteria 1+, STI panel neg, HIV neg, hepatitis panel neg s/p Meropenem x1 12/04 in ED Plan: - Pain regimen: ketorolac, Dilaudid and Tylenol - IVF NS 125 cc/hr for 2L - Tamsulosin 0.8 mL mg daily - F/u UCx and BCx - Zosyn 3.375 g (12/04- #Depression #Anxiety #Insomnia #Fibromyalgia - Resumed home bupropion 150 mg QD, ambien 10 mg qhs, clonazepam 0.5 mg BID prn and celebrex 200 mg QD - Hold hydroxyzine as patient is currently on multiple drugs for pain management #Gastroparesis - Resumed home Reglan - Scheduled senna/docusate QD #Normocytic anemia Admission hemoglobin 11.8, decreased to 10.6 after fluids. MCV 80s. Plan: - Consider to follow up iron studies outpatient for further management Hospital management: Lines: peripheal IV Diet: Renal Bowel: senna/docusate QD GI prophylaxis: IV pantoprazole 40 mg QD DVT prophylaxis: heparin q12 Disposition: med surg for IV abx CODE STATUS: Full code Plan of care discussed with attending Dr. Pacheco, and PGY-2 Dr. [place]. Skylar Swenson, PGY-1 Internal Medicine Attending Provider Attestation/Addendum I Anish Pacheco MD reviewed the note and agree with the resident's assessment & plan with modifications/additions/exceptions as below. I have personally reviewed labs, imaging, home meds/prior records, examined the patient, formulated and discussed management plan with the IM team. 39-year-old female with recent history of nephrolithiasis and urinary tract infection was being evaluated by urologist with cystoscopy being scheduled however was postponed due to insurance issues. Patient presented to ED overnight with significant nausea, vomiting, right flank and right-sided abdominal pain for the past few days. CT abdomen/pelvis did reveal right ureteral stone along with mild hydronephrosis and concern for infection. Patient likely has UTI with ureteric colic. Had fever overnight, leukocytosis improved, continue IV fluid resuscitation, continue Zosyn, continue tamsulosin. Pain control with Toradol, lidocaine patch and Dilaudid as needed. Obtain free T4 levels as TSH is decreased, pending urine culture results. Will consult urology for further evaluation and management.
[2024-12-05 13:29] LABS: Free T4 (Free Thyroxine) 0.84 ng/dL (0.89-1.76)
[2024-12-05] MEDS: ACETAMINOPHEN 325 MG TABLET 650 MG PO (13:53)
[2024-12-05] MEDS: CELECOXIB 100 MG CAPSULE 200 MG PO (19:45)
[2024-12-05 20:33] LABS: Amphetamine/Methamp Scrn,U Negative (Negative); Barbiturate Screen,Urine Negative (Negative); Benzodiazepines Screen,Urine Negative (Negative); Benzoylecgonine Screen, Ur Negative (Negative); Fentanyl Screen,Urine Negative (Negative); Opiate Screen,Urine Positive (Negative); THC Screen,Urine Negative (Negative)
[2024-12-05] MEDS: ZOLPIDEM 5 MG TABLET 10 MG PO (21:13)
[2024-12-05] MEDS: KETOROLAC INJ 30 MG/ML VIAL 15 MG IVP (23:57)
[2024-12-06] VITALS: BP 128/76; PULSE 98; RESP 16; TEMP 36.8; O2SAT 96
[2024-12-06] MEDS: HYDROmorphone INJ 2 MG/ML VIAL 0.5 MG IVP (03:32)
[2024-12-06] MEDS: PROCHLORPERAZINE INJ 5 MG/ML VIAL 2 ML 10 MG IVP (03:35)
[2024-12-06 04:00] VITALS: BP 116/72; PULSE 79; RESP 16; TEMP 37; O2SAT 94
[2024-12-06 05:43] LABS: Basophils # (Auto) 0.0 Thou/mm3 (0.0-0.2); Basophils % (Auto) 0 % (0-2.5); Eosinophils # (Auto) 0.1 Thou/mm3 (0.0-0.5); Eosinophils % (Auto) 1 % (0-10); Hematocrit 32.5 % (36.0-46.0); Hemoglobin 10.2 g/dL (12.0-16.0); Immature Granulocytes Auto 0.02 Thou/mm3 (0.00-0.00); Lymphocytes # (Auto) 1.5 Thou/mm3 (1.0-4.8); Lymphocytes % (Auto) 16 % (10-50); Mean Corpuscular HGB Conc 31.4 g/dl (31.0-37.0); Mean Corpuscular Hemoglobin 25.9 pg (25.0-35.0); Mean Corpuscular Volume 83 fL (80-100); Monocytes # (Auto) 0.9 Thou/mm3 (0.0-0.8); Monocytes % (Auto) 10 % (0-12); Neutrophils # (Auto) 6.8 Thou/mm3 (1.8-7.7); Neutrophils % (Auto) 73 % (37-80); Nucleated Red Blood Cell # 0.00 Thou/mm3 (0.00-0.00); Nucleated Red Blood Cell % 0 /100 WBC (0); Platelet Count 252 Thou/mm3 (140-440); RDW Standard Deviation 57.5 fL (36.4-46.3); Red Blood Count 3.94 Miln/mm3 (4.00-5.20); White Blood Count 9.3 Thou/mm3 (3.6-11.0)
[2024-12-06 06:10] LABS: Alanine Aminotransferase 19 U/L (10-49); Albumin, Serum 3.8 gm/dL (3.5-5.0); Albumin/Globulin Ratio 1.6 (1.2-2.2); Alkaline Phosphatase 55 U/L (46-116); Anion Gap 10 (7-16); Aspartate Amino Transferase 13 U/L (0-34); BUN/Creatinine Ratio 10 Ratio (12-20); Bilirubin,Total 0.4 mg/dL (0.3-1.2); Blood Urea Nitrogen < 5 mg/dL (9-23); Calcium 9.1 mg/dL (8.3-10.6); Calcium (Corrected) 9.3 mg/dL (8.5-10.1); Carbon Dioxide 22.6 mMol/L (20.0-31.0); Chloride 106 mMol/L (98-107); Creatinine (Component) 0.5 mg/dL (0.6-1.3); Estimated Creatinine Clearance 153.2 mL/min (>60); Globulin 2.4 gm/dL (2.3-3.5); Glucose 106 mg/dL (74-106); Magnesium 1.8 mg/dL (1.6-2.6); Osmolality,Calculated 274 (275-295); Potassium 3.2 mMol/L (3.4-5.1); Sodium 139 mMol/L (136-145); Total Protein 6.2 gm/dL (5.7-8.2); eGFR > 60 See Note
[2024-12-06] MEDS: METOCLOPRAMIDE 5 MG TABLET 10 MG PO (06:11)
[2024-12-06] MEDS: PIPER/TAZO 3.375 GM PREMIX 3.375 GM/50 ML BAG IV (06:24)
[2024-12-06] MEDS: ACETAMINOPHEN 325 MG TABLET 650 MG PO (06:29)
[2024-12-06 08:00] VITALS: BP 128/83; PULSE 76; RESP 18; TEMP 36.8; O2SAT 97
[2024-12-06] MEDS: TAMSULOSIN HCL 0.4 MG CAPSULE 0.8 MG PO (08:38)
[2024-12-06] MEDS: SENNA/DOCUSATE SOD 1 TAB TABLET PO (08:38)
[2024-12-06] MEDS: CELECOXIB 100 MG CAPSULE 200 MG PO (08:38)
[2024-12-06] MEDS: HEPARIN SOD INJ 5000 UNIT/ML VIAL SC (08:39)
[2024-12-06] MEDS: POTASSIUM CHLORIDE 10% 20 MEQ/15 ML UDC 40 MEQ PO (08:49)
[2024-12-06] MEDS: POTASSIUM CHLORIDE 10% 20 MEQ/15 ML UDC PO (08:49)
[2024-12-06] MEDS: Magnesium Sulfate 2 GM Ivpb 2 GM/50 ML BAG IV (08:49)
[2024-12-06] MEDS: KETOROLAC INJ 30 MG/ML VIAL 15 MG IVP (08:50)
--- NOTE | 2024-12-06 15:02 | ESDS_ITS ---
<Statement entered by Anish Pacheco MD - 12/11/24 18:09> I Anish Pacheco MD reviewed the note and agree with the resident's assessment & plan with modifications/additions/exceptions as below. I have personally reviewed labs, imaging, home meds/prior records, examined the patient, formulated and discussed management plan with the IM team. <Statement entered by Patricia Gao MD - 12/06/24 16:37> Patient was seen and examined at bedside. I agree on the assessment and plan on this note as documented by resident Skylar Swenson DO PGY1. 39-year-old female with past medical history as below admitted for acute pyelonephritis, also had nephrolithiasis, eventually urine culture positive for ESBL, required IV pain medication for management of pain. Further plan is to discharge patient on ciprofloxacin to complete treatment for ESBL UTI. Patient to continue tamsulosin outpatient and follow-up with urology. Stable for discharge, responded well to hospital treatment. Case discussed with attending Dr. Junior Gao MD PGY-2 Planned Discharge Date 12/06/24 DS: Providers Provider Date of admission: 12/04/24 09:53 Primary care physician: Physician No Primary/Family Admitting Provider: Anish Pacheco MD Attending Provider on Admission: Anish Pacheco MD Attending Provider on DC: Anish Pacheco MD Discharging Provider: Anish Pacheco MD DS: Diagnosis Problem List Completed Was Problem List Reviewed/Reconciled?: Yes Hospital Course Hospital Course Hospital course: Summary: Wendy Solis is a 39F pmhx significant for gastroparesis, depression, anxiety, insomnia and recurrent UTI presented to [facility] ED on 12/04 with bilateral flank pain, admitted for acute pyelonephritis and ureteric colic. Patient presented with significant bilateral flank pain radiating to lower abdominan, right greater than left, with tachycardia fever and increased white count. Urinalysis shows signs of infection. Patient was treated with IV antibiotics and pain medication, with improvement in pain and resolution of vitals and elevated white count. On discharge patient is hemodynamically stable, labs and vitals reviewed to be stable and patient is ready to go home. Imaging: CTAP shows small calculi which is nonobstructing however there is evidence of mild right hydronephrosis. Discharge Recommendations: - Please take all medications as prescribed - START ciprofloxacin for 10 more days - Start tamsulosin for two more weeks to help pass the stone - Please follow-up with outpatient urologist - Please follow up with your PCP within one week of discharge - If your symptoms worsen, please seek immediate medical attention and return to your nearest emergency room. - If you do not have a PCP, you may follow up at the [facility] at [address] [place] [address] [id number] [id number], Hospital Diagnoses: #Acute pyelonephritis #Recurrent UTIs #Right hydronephrosis, mild 2/2 #Right ureteral calculi, small #Depression #Anxiety #Insomnia #Fibromyalgia #Gastroparesis #Normocytic anemia Skylar Swenson, DO Internal Medicine, PGY-1 Status at Discharge Cognitive/behavioral status at discharge: Stable Functional status at discharge: independent ambulation Overall status at discharge: patient is progressing back to baseline Time Spent with Patient Time attestation: Total time spent providing and/or coordinating discharge services: Time spent: Greater than 30 minutes Exam Vital Signs Temp Pulse Resp BP Pulse Ox O2 Del Method 98.2 F 76 18 128/83 97 Room Air 12/06/24 08:00 12/06/24 08:00 12/06/24 08:00 12/06/24 08:00 12/06/24 08:00 12/06/24 08:00 Narrative Exam GENERAL: AOx3, no acute distress, obese well groomed HEENT: NC/AT, mucous membranes moist, bilateral sclera anicteric CARDIOVASCULAR: regular rate and rhythm, S1/S2 present, no murmurs appreciated PULMONARY: clear to auscultation bilaterally, no rales/rhonchi/wheezes ABDOMINAL: soft, +lower abdominal tenderness, +mild b/l flank tenderness, non- distended, no rebound/guarding, bowel sounds present EXTREMITIES: no peripheral edema SKIN: warm and dry, intact, no rashes NEURO: CN II-XII grossly intact, no focal deficits, alert, following commands Discharge Plan Plan Patient Disposition: HOME (Self Care) Patient condition on transfer: Stable Care Plan Goals: -Follow up with PCP within 1 week of discharge, if you do not have a primary care physician you can come see us at the [facility] by calling [phone] -You have been prescribed antibiotics for 10 more days please complete the course -Please follow up outpatient with a urologist for your kidney stone -Continue rest of medications as previously prescribed -Return to the ED or call EMS if symptoms return and/or worsen Prescriptions/Referrals Prescriptions/Med Rec: New tamsulosin 0.4 mg Capsule 0.8 mg PO QDAY 14 Days Qty: 28 0RF ciprofloxacin HCl 500 mg tablet 500 mg PO BID 10 Days Qty: 20 0RF Continued metoclopramide HCl [Reglan] 10 mg tablet 10 mg PO Q6H omeprazole 40 mg capsule,delayed release(DR/EC) 40 mg PO QDAY clonazepam 0.5 mg tablet 0.5 mg PO BID PRN (Reason: anxiety) bupropion HCl 75 mg tablet 150 mg PO DAILY Rx Instructions: administer 6 hours apart zolpidem 10 mg tablet 10 mg PO HS hydroxyzine HCl 50 mg tablet 50 mg PO HS docusate sodium [Colace] 100 mg capsule 100 mg PO BID Held celecoxib [Celebrex] 200 mg capsule 200 mg PO QDAY Hold Instructions: Resume on 12/20/24. please see your primary care before resuming this medication Referrals: No Primary/Family,Physician [Primary Care Provider] - Patient/Caregiver Discharge Instructions Discharge Activity: activity as tolerated Education Materials: Urinary Tract Infections in Women Print Language: Armenian Stand Alone Forms: Kayla Award Info., Patient Portal Info Letter Discharge Order Discharge Orders: Discharge (Routine); Ordered 12/06/24 Ordered By: Nicole Pacheco Quality Discharge Quality Measures VTE prophylaxis
== END 2024-12-06 11:44 | disposition home or self-care (01) | DRG 463 ==
LOC: SERX 07:45 → SERHOLD 09:59 → S3SX 13:22
PROVIDERS: Nurse Practitioner Family; Admitting Provider Student in an Organized Health Care Education/Training Program; Emergency Provider Emergency Medicine; Visit Provider Student in an Organized Health Care Education/Training Program
DX: N13.6 Pyonephrosis (principal); F32.A Depression, unspecified; F41.9 Anxiety disorder, unspecified; G47.00 Insomnia, unspecified; K31.84 Gastroparesis; M79.7 Fibromyalgia; Z87.440 Personal history of urinary (tract) infections; K59.00 Constipation, unspecified; N20.1 Calculus of ureter; D64.9 Anemia, unspecified; Z88.2 Allergy status to sulfonamides; Z88.1 Allergy status to other antibiotic agents; Z79.899 Other long term (current) drug therapy; Z88.8 Allergy status to other drugs, medicaments and biological substances; Z16.12 Extended spectrum beta lactamase (ESBL) resistance
CPT/HCPCS: 36415; 74176; 80053; 80074; 80307; 81001; 81025; 83605; 83690; 83735; 84145; 84439; 84443; 85025; 86703; 86780; 87040; 87077; 87086; 87186; 87491; 87591; 87661; 93005; 96361; 96365; 96372; 96375; 96376; 99284; J0131; J0780; J1171; J1644; J1885; J2185; J2270; J2405; J2470; J2543; J3475; J7030; J7050; J7120; Q0162; A9270